=== PATIENT | female | born 1950 | race Caucasian/White ===

== ENCOUNTER 2023-10-11 12:50 | Outpatient (OUT) | payer MEDICARE, OTHER, SELFPAY ==
--- NOTE | 2023-10-11 12:58 | US_ITS ---
[address] [address] Patient Name: LEE OTTO MRN: [id number] date: 1950 Sex: F Assigned Patient Location: [place] Current Patient Location: [place] Accession/Order Number: [id number] Exam Date: 10/11/2023 13:00 Report Date: 10/11/2023 22:33 At the request of: SYBIL ÁLVAREZ Procedure: US carotid duplex BI EXAMINATION: US carotid duplex BI HISTORY: Bruit Of Right Carotid Artery R09.89 COMPARISON: No relevant comparison available. TECHNIQUE: Duplex Doppler ultrasound analysis of carotid and vertebral arteries. . Bilateral carotid arterial duplex examination was performed using B-mode, color flow and spectral analysis. Carotid stenosis is reported according to validated velocity parameters, similar to NASCET criteria. FINDINGS: RIGHT CAROTID ARTERY: Minimal atherosclerotic disease without appreciable stenosis. RIGHT VERTEBRAL: Antegrade flow. Subclavian: PSV: 70.3 cm/s EDV: 5.3 cm/s CCA: Prox: PSV: 109.4 cm/s EDV: 28.6 cm/s Mid: PSV: 93.7 cm/s EDV: 32.5 cm/s Distal: PSV: 74.2 cm/s EDV: 29.9 cm/s BULB: PSV: 67.7 cm/s EDV: 23.3 cm/s ICA: Prox: PSV: 76.8 cm/s EDV: 31.2 cm/s Mid: PSV: 71.6 cm/s EDV: 27.3 cm/s Distal: PSV: 97.6 cm/s EDV: 35.1 cm/s ECA: PSV: 68.9 cm/s EDV: 15.5 cm/s VERTEBRAL: PSV: 35.7 cm/s EDV: 10.4 cm/s ICA/CCA ratio: PSV: 1.3 EDV: 1.2 LEFT CAROTID ARTERY: Minimal atherosclerotic disease without appreciable stenosis. LEFT VERTEBRAL: Antegrade flow. Subclavian: PSV: 90.3 cm/s EDV: 9.5 cm/s CCA: Prox: PSV: 74.9 cm/s EDV: 27.0 cm/s Mid: PSV: 72.3 cm/s EDV: 28.3 cm/s Distal: PSV: 87.9 cm/s EDV: 34.8 cm/s BULB: PSV: 51.6 cm/s EDV: 18.0 cm/s ICA: Prox: PSV: 91.7 cm/s EDV: 42.6 cm/s Mid: PSV: 76.2 cm/s EDV: 32.2 cm/s Distal: PSV: 74.9 cm/s EDV: 29.6 cm/s ECA: PSV: 65.8 cm/s EDV: 8.9 cm/s VERTEBRAL: PSV: 54.2 cm/s EDV: 16.7 cm/s ICA/CCA ratio: PSV: 1.0 EDV: 1.2 US/US carotid duplex BI IMPRESSION: 1. 0-49% flow stenosis within the right left carotid arteries. 2. Minimal atherosclerotic disease. Electronically authenticated by: BRAULIO PAIZ Date: 10/11/2023 22:33
== END 2023-10-11 12:51 | disposition home or self-care (01) ==
PROVIDERS: PCP Internal Medicine; Visit Provider Internal Medicine
DX: R09.89 Other specified symptoms and signs involving the circulatory and respiratory systems (principal)
CPT/HCPCS: 93880